=== PATIENT | female | born 1965 | race Two or more races ===

== ENCOUNTER 2024-11-18 22:28 | Emergency (ER) | payer MEDICAID, OTHER ==
[~2024-11-18] VITALS: Ht 160 cm; Wt 49.6 kg
[2024-11-18] MEDS: HYDROcodone-ACET 10/325MG TAB PO ONE (23:27)
[2024-11-18 23:28] VITALS: BP 132/82; TEMP 97.7
--- NOTE | 2024-11-18 23:45 | DVH ---
CLINICAL INDICATION: Trauma with pain. TECHNIQUE: XYXY L HUMERUS XRAY Comparison: XY L FOREARM XRAY on DOS: 11/18/24, XY L HAND 3V XRAY on DOS: 11/18/24 FINDINGS/IMPRESSION: : There is no evidence of acute fracture or dislocation. Soft tissues are unremarkable. Plate and screw fixation hardware throughout the humeral diaphysis no complication
--- NOTE | 2024-11-18 23:46 | DVH ---
CLINICAL INDICATION: Trauma with pain. TECHNIQUE: XYXY L FOREARM XRAY Comparison: XY L HUMERUS XRAY on DOS: 11/18/24 FINDINGS/IMPRESSION: : There is no evidence of acute fracture or dislocation. Remote fracture deformity of the distal humeru s with apex volar angulation Soft tissues are unremarkable.
--- NOTE | 2024-11-19 | DVH ---
CLINICAL INDICATION: Trauma with pain. TECHNIQUE: XYXY L HAND 3V XRAY Comparison: XY L FOREARM XRAY on DOS: 11/18/24, XY L HUMERUS XRAY on DOS: 11/18/24 FINDINGS/IMPRESSION: : There is no evidence of acute fracture or dislocation. Soft tissues are unremarkable.
[2024-11-19] MEDS ORDERED: ACET500T58 PO (00:21)
[2024-11-19] MEDS ORDERED: IBUP-1455 PO (00:21)
--- NOTE | 2024-11-19 00:21 | ED.PDOC ---
Musculoskeletal HPI Comments This patient is a 58-year-old female who arrives the ED today for evaluation of left wrist pain status post being handcuffed and arrested one day ago. Patient states that the transit police officer was aggressive and she believes she has broken her wrist. Mild deformity appreciated. Distal neurovascularly intact. No head trauma. Chief Complaint: Upper Extremity Time Seen by MD: 22:36 Reviewed Notes: Nurses Notes Information Source: Patient, Relative (GrandChild) Mode of Arrival: Ambulatory Location: Left Extremity Location: Wrist Timing: Days Prehospital treatment: None Severity: Moderate Able to Move Extremity: Yes Bear Weight: Fully Pain: Moderate Hand Dominance: Right Mechanism: Hyperflexion Circumstances: Other (Hand cuffed during arrest) Onset of Symptoms: After Trauma Symptoms: Swelling, Pain DVT Risk Factors: NONE Associated signs and symptoms: Arm pain Past Medical History PAST MEDICAL HISTORY: Denies Surgical History: Denies all surgeries Surgical History (Other): Patient had an open reduction internal fixation of left humerus. [employer] History: No Pertinent STEEL [employer]HER History Family History Family History: Reviewed,noncontributory to illness, No family hx of Cancer, No family hx of DM, No family hx of Heart sha, No family hx of HTN, No family hx ofKidney sha, No family hx of Liver sha, No family hx of Lung sha, No family hx of Stroke Social History Smoker: Non-Smoker Alcohol: Denies ETOH Use Drugs: Denies Drug Use Lives In: Home Constitutional: denies: chills, diaphoresis, fatigue, fever, malaise, sweats, weakness, others EENTM: denies: blurred vision, double vision, ear bleeding, ear discharge, ear drainage, ear pain, ear ringing, eye pain, eye redness, hearing loss, mouth pain, mouth swelling, nasal discharge, nose bleeding, nose congestion, nose pain, photophobia, tearing, throat pain, throat swelling, voice changes, others Respiratory: denies: cough, hemoptysis, orthopnea, SOB at rest, shortness of breath, SOB with excertion, stridor, wheezing, others Cardiovascular: denies: chest pain, dizzy spells, diaphoresis, Dyspnea on exertion, edema, irregular heart beat, left arm pain, lightheadedness, palpitations, PND, syncope, others Gastrointestinal: denies: abdomen distended, abdominal pain, blood streaked bowels, constipated, diarrhea, dysphagia, difficulty swallowing, hematemesis, melena, nausea, poor appetite, poor fluid intake, rectal bleeding, rectal pain, vomiting, others Genitourinary: denies: abnormal vagina bleeding, burning, dyspareunia, dysuria, flank pain, frequency, hematuria, incontinence, pain, , vagina discharge, urgency, others Neurological: denies: dizziness, fainting, headache, left sided numbness, left sided weakness, numbness, paresthesia, pre-existing deficit, right sided numbness, right sided weakness, seizure, speech problems, tingling, tremors, weakness, others Musculoskeletal: reports: others (Left arm pain); denies: back pain, gout, joint pain, joint swelling, muscle pain, muscle stiffness, neck pain Integumetry: denies: bruises, change in color, change in hair/nails, dryness, laceration, lesions, lumps, rash, wounds, others Allergic/Immunocompromised: denies: Difficulty Healing, Frequent Infections, Hives, Itching, others Hematologic/Lymphatic: denies: anemia, blood clots, easy bleeding, easy bruising, swollen glands, others Endocrine: denies: excessive hunger, excessive sweating, excessive thirst, excessive urination, flushing, intolerance to cold, intolerance to heat, une xplained weight gain, unexplained weight loss, others Psychiatric: denies: anxiety, bipolar disorder, depression, hopeless, panic disorder, schizophrenia, sleepless, suicidal, others Physical Exam General Appearance: Moderate Distress (Due to left arm pain concerns. Patient appears much older than her chronology.), Normal HEENT: Normal ENT Inspection, Pharynx Normal, TMs Normal Neck: Full Range of Motion, Non-Tender, Normal, Normal Inspection Respiratory: Chest Non-Tender, Lungs Clear, No Accessory Muscle Use, No Respiratory Distress, Normal Breath Sounds Cardiovascular: No Edema, No JVD, No Murmur, No Gallop, Normal Peripheral Pulses, Regular Rate/Rhythm Breast Exam: Deferred Gastrointestinal: No Organomegaly, Non Tender, No Pulsatile Mass, Normal Bowel Sounds, Soft Genitalia: Deferred Pelvic: Deferred Rectal: Deferred Extremities: Other (Patient complains of left arm pain from the shoulder to the hand. Highest level of pain involves the left wrist. Mild angular deformity noted. No crepitus.) Neurologic: Alert Cerebellar Function: NOT DONE Reflexes: NOT DONE Skin: Dry, Normal Color, Warm Lymphatic: No Adenopathy Was a procedure done? Was a procedure done?: No Differential Diagnosis EXT Differential Diagnosis: Fracture, Sprain, Contusion, Strain X-Ray, Labs, Meds, VS Vital Signs Date Time Temp Pulse Resp B/P (MAP) Pulse Ox O2 Delivery O2 Flow Rate FiO2 11/18/24 23:28 97.7 84 16 132/82 (99) 92 97.7 11/18/24 22:33 97.0 95 18 128/80 94 97.0 Current Medications Medications (Trade) Dose Ordered Sig/Larissa Route Start Time Stop Time Status Last Admin Acetaminophen/ Hydrocodone Bitart ([place] 10/325MG Tab) 1 tab ONCE ONCE PO 11/18/24 23:15 11/18/24 23:16 DC 11/18/24 23:27 X-Ray, Labs, Meds, VS Comment All studies performed the ED were evaluated by me personally. Imaging studies were unremarkable for any acute fractures of the arm. Patient does have a angulation of the distal radius from a prior poorly healed fracture. Advised patient follow up with the primary care provider for discussions related to today's visit and possible orthopedic referral to address her poorly healed left distal radius. Time of 1ST Reevaluation: 00:19 Reevaluation 1ST: Improved Consultation: PCP Patient Education/Counseling: Diagnosis, Treatment Family Education/Counseling: Diagnosis, Treatment Sepsis Recent Procedure: No On Antibiotic Therapy: No Respiratory Rate >20: No Heart Rate >90: No Temp<36 C (96.8 F) or >38.3 C: No SBP <90 or MAP <65 mmHG: No New Acute Mental Status Change: No Is the patient on CPAP, BIPAP,: No IV fluid given: No Departure 1 Departure Time of Disposition: 00:20 Impression: Primary Impression: Left wrist sprain Disposition: HOME / SELF CARE / HOMELESS Condition: Stable Additional Instructions: Advised pain medication as needed as well as ice therapy. Patient should follow up with her primary care provider for discussions related to her poorly healed left distal radial fracture. e-Prescriptions Acetaminophen (Acetaminophen) 500 Mg Tab 500 MG PO Q4HP PRN, #30 TAB Prov: JOHN BLACK PAC 11/19/24 Ibuprofen Micronized (Ibuprofen) 800 Mg Tab 800 MG PO Q8HP PRN, #20 TAB Prov: JOHN BLACK PAC 11/19/24 Discharged With: Self, Relative Critical Care Note Critical Care Time?: No Stability Stability form required: No Heart Score Heart Score: Heart Score Response (Comments) Value History N/A 0 EKG N/A 0 Age N/A 0 Risk Factors N/A 0 Troponin N/A 0 Total 0 JOHN BLACK PAC Nov 19, 2024 00:21
[2024-11-19 00:43] VITALS: PULSE 84; RESP 16; O2SAT 92
== END 2024-11-19 00:45 | disposition home or self-care (01) ==
LOC: ER 22:28
DX: S63.502A Unspecified sprain of left wrist, initial encounter (principal); X58.XXXA Exposure to other specified factors, initial encounter; Y93.89 Activity, other specified; Y92.89 Other specified places as the place of occurrence of the external cause; Y99.8 Other external cause status
CPT/HCPCS: 73060; 73090; 73130